=== PATIENT | male | born 1970 | race Caucasian/White ===

== ENCOUNTER 2019-06-11 09:32 | Emergency (ER) | payer SELFPAY ==
[~2019-06-11] VITALS: Ht 167.6 cm; Wt 72.6 kg
[2019-06-11] MEDS ORDERED: fentaNYL PF VIAL 100 MCG/2 ML VIAL IV ONE (09:45)
[2019-06-11] MEDS ORDERED: ONDANSETRON PF 4 MG/2 ML VIAL. IV ONE (09:45)
[2019-06-11] MEDS ORDERED: IV NORMAL SALINE 1000ML BAG 1,000 ML IV SCH (09:45)
[2019-06-11 09:59] LABS: BASO % 0 % (0-3); EOS # 0.3 x10^3/uL (0.0-0.7); EOS % 3 % (0-3); HEMATOCRIT 38.8 % (39.0-53.0); LYMPH # 1.8 x10^3/uL (1.0-4.8); LYMPH % 19 % (24-48); MEAN CORPUSCULAR HEMOGLOBIN 30 pg (25-35); MEAN CORPUSCULAR HGB CONC 34 g/dL (31-37); MEAN CORPUSCULAR VOLUME 90 fL (79-100); MONO # 0.7 x10^3/uL (0.0-1.1); MONO % 7 % (0-9); NEUT # 6.5 x10^3/uL (1.8-7.7); NEUT % 70 % (31-73); PLATELET COUNT 222 x10^3/uL (140-400); RED BLOOD COUNT 4.32 x10^6/uL (4.30-5.70); RED CELL DISTRIBUTION WIDTH 13.5 % (11.5-14.5); WHITE BLOOD COUNT 9.2 x10^3/uL (4.0-11.0)
[2019-06-11 10:13] LABS: CREATININE 1.3 mg/dL (0.7-1.3); GFR 58.9; POTASSIUM 3.3 mmol/L (3.5-5.1)
[2019-06-11 10:21] LABS: ALBUMIN 3.7 g/dL (3.4-5.0); TOTAL BILIRUBIN 0.2 mg/dL (0.2-1.0); TOTAL PROTEIN 7.4 g/dL (6.4-8.2)
--- NOTE | 2019-06-11 10:34 | RAD ---
CT ABDOMEN PELVIS WO CONTRAST History: Left upper quadrant pain. Technique: Noncontrast examination of the abdomen and pelvis. Coronal and sagittal reconstructions were performed. Exposure: One or more of the following individualized dose reduction techniques were utilized for this examination: 1. Automated exposure control 2. Adjustment of the mA and/or kV according to patient size 3. Use of iterative reconstruction technique. Comparison: None Findings: Lower chest: No consolidation or pleural effusion. Abdomen and pelvis: Left perinephric and periureteral fat stranding. Mild left hydronephrosis. 0.6 cm anterior posterior by 0.5 cm transverse by 0.7 cm craniocaudal obstructing left proximal ureteral calculus. No additional urolithiasis. No right hydronephrosis. Mild urinary bladder wall thickening, likely due to nondistention. Calcifications within the liver and spleen related to prior granulomatous disease. Otherwise, unremarkable noncontrast appearance of the liver, spleen, adrenal glands, pancreas and gallbladder. No biliary ductal dilatation. No evidence of bowel obstruction. Normal appendix. No pathologic lymphadenopathy. No ascites. Bones: No pathologic osseous lesions. Impression: 1. 6 mm obstructing left proximal ureteral stone with associated mild hydronephrosis and perinephric/periureteral fat stranding. 2. Mild urinary bladder wall thickening, likely due to nondistention. Correlate for cystitis. Electronically signed by: Juan M Bergman DO (06/11/2019 10:31 AM) [facility]
[2019-06-11] MEDS ORDERED: TAMSULOSIN 0.4 MG CAP.ER.24H. PO STA (10:42)
[2019-06-11] MEDS ORDERED: HYDROmorphone 2 MG/ML VIAL ONE (10:44)
[2019-06-11] MEDS ORDERED: TAMSULOSIN 0.4 MG CAP.ER.24H. PO ONE (10:44)
[2019-06-11] MEDS ORDERED: KETOROLAC 30 MG/ML VIAL. IV ONE (10:45)
[2019-06-11] MEDS ORDERED: HYDROmorphone 2 MG/ML VIAL IV ONE (11:00)
[2019-06-11] MEDS ORDERED: IV NORMAL SALINE 1000ML BAG 1,000 ML IV ONE (11:00)
[2019-06-11] MEDS ORDERED: HYDR-3164 PO (11:25)
[2019-06-11] MEDS ORDERED: TAMS0.4C97 PO (11:25)
[2019-06-11] MEDS ORDERED: IBUP-1060 PO (11:25)
--- NOTE | 2019-06-11 11:26 | PHYS DOC ---
Past Medical History Past Medical History: No Pertinent History Past Surgical History: No Surgical History Additional Information: 1 ppd Alcohol Use: Sober Additional Information: sober 12 years Drug Use: Methamphetamine Adult General Chief Complaint Chief Complaint: FLANK PAIN HPI HPI Patient is a 48 year old male who presents with complaining of left abdominal pain. Patient complaining of sudden onset of left upper quadrant pain as a sharp stabbing pain about an hour prior to arrival to ER with nausea without vomiting, diarrhea and constipation, fever and chills, urinary symptom with history of injury of the same pain. Patient rated his pain as a 10 over 10 and denies recent dehydration. Review of Systems Review of Systems Constitutional: Denies fever or chills [] Eyes: Denies change in visual acuity, redness, or eye pain [] HENT: Denies nasal congestion or sore throat [] Respiratory: Denies cough or shortness of breath [] Cardiovascular: No additional information not addressed in HPI [] GI: Reports abdominal pain, nausea, denies vomiting, bloody stools or diarrhea [] : Denies dysuria or hematuria [] Musculoskeletal: Denies back pain or joint pain [] Integument: Denies rash or skin lesions [] Neurologic: Denies headache, focal weakness or sensory changes [] Endocrine: Denies polyuria or polydipsia [] All other systems were reviewed and found to be within normal limits, except as documented in this note. Current Medications Current Medications Current Medications Medications (Trade) Dose Ordered Sig/Frances Start Time Stop Time Status Last Admin Dose Admin Fentanyl Citrate (Fentanyl 2ml Vial) 50 mcg 1X ONCE 06/11/19 09:45 06/11/19 10:04 DC 06/11/19 09:54 50 MCG Hydromorphone HCl (Dilaudid) 2 mg STK-MED ONCE 06/11/19 10:44 06/11/19 10:44 DC Ketorolac Tromethamine (Toradol 30mg Vial) 30 mg 1X ONCE 06/11/19 10:45 06/11/19 10:46 DC 06/11/19 10:32 30 MG Ondansetron HCl (Zofran) 4 mg 1X ONCE 06/11/19 09:45 06/11/19 10:04 DC 06/11/19 09:54 4 MG Sodium Chloride 1,000 ml @ 1,000 mls/hr 1X ONCE 06/11/19 11:00 8/20/19 11:59 DC 06/11/19 10:49 1,000 MLS/HR Tamsulosin HCl (Flomax) 0.4 mg STK-MED ONCE 06/11/19 10:44 06/11/19 10:44 DC Allergies Allergies Allergies Coded Allergies Type Severity Reaction Last Updated Verified procaine Allergy Severe "convulsions" 06/11/19 Yes Physical Exam Physical Exam Constitutional: Well developed, well nourished, moderate distress, non-toxic appearance. [] HENT: Normocephalic, atraumatic. Eyes: PERRLA, EOMI, conjunctiva normal, no discharge. [] Neck: Normal range of motion, no tenderness, supple, no stridor. [] Cardiovascular:Heart rate regular rhythm, no murmur [] Lungs & Thorax: Bilateral breath sounds clear to auscultation [] Abdomen: Bowel sounds normal, soft, left upper quadrant guarding, no tenderness, no masses, no pulsatile masses. [] Skin: Warm, dry, no erythema, no rash. [] Back: No tenderness, no CVA tenderness. [] Extremities: No tenderness, no cyanosis, no clubbing, ROM intact, no edema. [] Neurologic: Alert and oriented X 3, no focal deficits noted. [] Psychologic: Affect anxious, judgement normal, mood normal. [] Current Patient Data Vital Signs Vital Signs Date Time Temp Pulse Resp B/P (MAP) Pulse Ox O2 Delivery O2 Flow Rate FiO2 06/11/19 12:30 60 103/54 (70) 95 Room Air 06/11/19 10:49 18 06/11/19 09:38 97.5 97.5 Lab Values Laboratory Tests Test 06/11/19 09:42 06/11/19 12:10 White Blood Count 9.2 x10^3/uL (4.0-11.0) Red Blood Count 4.32 x10^6/uL (4.30-5.70) Hemoglobin 13.0 g/dL (13.0-17.5) Hematocrit 38.8 % (39.0-53.0) L Mean Corpuscular Volume 90 fL (79-100) Mean Corpuscular Hemoglobin 30 pg (25-35) Mean Corpuscular Hemoglobin Concent 34 g/dL (31-37) Red Cell Distribution Width 13.5 % (11.5-14.5) Platelet Count 222 x10^3/uL (140-400) Neutrophils (%) (Auto) 70 % (31-73) Lymphocytes (%) (Auto) 19 % (24-48) L Monocytes (%) (Auto) 7 % (0-9) Eosinophils (%) (Auto) 3 % (0-3) Basophils (%) (Auto) 0 % (0-3) Neutrophils # (Auto) 6.5 x10^3/uL (1.8-7.7) Lymphocytes # (Auto) 1.8 x10^3/uL (1.0-4.8) Monocytes # (Auto) 0.7 x10^3/uL (0.0-1.1) Eosinophils # (Auto) 0.3 x10^3/uL (0.0-0.7) Basophils # (Auto) 0.0 x10^3/uL (0.0-0.2) Sodium Level 144 mmol/L (136-145) Potassium Level 3.3 mmol/L (3.5-5.1) L Chloride Level 104 mmol/L (98-107) Carbon Dioxide Level 33 mmol/L (21-32) H Anion Gap 7 (6-14) Blood Urea Nitrogen 16 mg/dL (8-26) Creatinine 1.3 mg/dL (0.7-1.3) Estimated GFR (Cockcroft-Gault) 58.9 BUN/Creatinine Ratio 12 (6-20) Glucose Level 106 mg/dL (70-99) H Calcium Level 9.0 mg/dL (8.5-10.1) Total Bilirubin 0.2 mg/dL (0.2-1.0) Aspartate Amino Transferase (AST) 15 U/L (15-37) Alanine Aminotransferase (ALT) 18 U/L (16-63) Alkaline Phosphatase 64 U/L (46-116) Total Protein 7.4 g/dL (6.4-8.2) Albumin 3.7 g/dL (3.4-5.0) Albumin/Globulin Ratio 1.0 (1.0-1.7) Lipase 111 U/L (73-393) Urine Opiates Screen Pos (NEG) Urine Methadone Screen Neg (NEG) Urine Barbiturates Neg (NEG) Urine Phencyclidine Screen Neg (NEG) Urine Amphetamine/Methamphetamine Pos (NEG) Urine Benzodiazepines Screen Neg (NEG) Urine Cocaine Screen Neg (NEG) Urine Cannabinoids Screen Neg (NEG) Urine Ethyl Alcohol Neg (NEG) Laboratory Tests 06/11/19 09:42 Laboratory Tests 06/11/19 09:42 EKG EKG [] Radiology/Procedures Radiology/Procedures [][facility] [address] [place] [address] IMAGING REPORT Signed PATIENT: ENRIQUE MANTILLA ACCOUNT: [id number] : 1970 LOCATION: ER AGE: 48 SEX: M EXAM STATUS: REG ER ORD. PHYSICIAN: DINO LEONG MD REASON: left upper quadrant pain PROCEDURE: CT ABDOMEN PELVIS WO CONTRAST CT ABDOMEN PELVIS WO CONTRAST History: Left upper quadrant pain. Technique: Noncontrast examination of the abdomen and pelvis. Coronal and sagittal reconstructions were performed. Exposure: One or more of the following individualized dose reduction techniques were utilized for this examination: 1. Automated exposure control 2. Adjustment of the mA and/or kV according to patient size 3. Use of iterative reconstruction technique. Comparison: None Findings: Lower chest: No consolidation or pleural effusion. Abdomen and pelvis: Left perinephric and periureteral fat stranding. Mild left hydronephrosis. 0.6 cm anterior posterior by 0.5 cm transverse by 0.7 cm craniocaudal obstructing left proximal ureteral calculus. No additional urolithiasis. No right hydronephrosis. Mild urinary bladder wall thickening, likely due to nondistention. Calcifications within the liver and spleen related to prior granulomatous disease. Otherwise, unremarkable noncontrast appearance of the liver, spleen, adrenal glands, pancreas and gallbladder. No biliary ductal dilatation. No evidence of bowel obstruction. Normal appendix. No pathologic lymphadenopathy. No ascites. Bones: No pathologic osseous lesions. Impression: 1. 6 mm obstructing left proximal ureteral stone with associated mild hydronephrosis and perinephric/periureteral fat stranding. 2. Mild urinary bladder wall thickening, likely due to nondistention. Correlate for cystitis. Electronically signed by: Juan M Bergman DO (06/11/2019 10:31 AM) [facility] DICTATED and SIGNED BY: JUAN M BERGMAN DO DATE: 06/11/19 1031 Course & Med Decision Making Course & Med Decision Making Pertinent Labs and Imaging studies reviewed. (See chart for details) Evaluation of patient in ER showed 48-year-old male patient with complaining of sudden onset of abdomen and left flank pain about an over prior to arrival with severe pain. Patient was contacted with IV fluids, fentanyl, Zofran, Toradol and Dilaudid and finally felt better. CT of abdomen showed 6 mm upper ureteral stone. Patient treated with 2 L of IV fluid and refused to give urine sample and finally gave a sample of urine that was normal. UDS and showed positive amphetamines. Patient did not have UA and because of the cloudy urine sample and oral antibiotic was started and patient was advised to strain his urine and follow up with on-call urologist. Dragon Disclaimer Dragon Disclaimer This electronic medical record was generated, in whole or in part, using a voice recognition dictation system. Departure Departure Impression: Primary Impression: Renal colic on left side Additional Impressions: Ureterolithiasis Methamphetamine abuse Disposition: 01 HOME, SELF-CARE Condition: IMPROVED Referrals: NO PCP (PCP) HOLLY MACIAS MD Patient Instructions: Diet for Kidney Stones, Kidney Stones Additional Instructions: Drink plenty of liquids Follow-up with your primary care physician in 3-5 days Return to ER if not getting better Strain all of your urine Follow up with on-call urologist in 2 or 3 days Scripts Ciprofloxacin Hcl (CIPRO) 250 Mg Tablet 1 TAB PO BID for infection, #6 TAB Prov: DINO LEONG MD 06/11/19 Hydrocodone/Apap 5-325 (NORCO 5-325 TABLET) 1 Each Tablet 1 TAB PO PRN Q6HRS PRN for PAIN, #14 TAB 0 Refills Prov: DINO LEONG MD 06/11/19 Ibuprofen (IBUPROFEN) 800 Mg Tablet 800 MG PO PRN Q8HRS PRN for INFLAMMATION, #20 TAB Prov: DINO LEONG MD 06/11/19 Tamsulosin Hcl (FLOMAX) 0.4 Mg Cap.er.24h 1 CAP PO DAILY, #14 CAP 0 Refills Prov: DINO LEONG MD 06/11/19 Critical Care Time Critical care time was 70 minutes exclusive of procedures. Problem Qualifiers DINO LEONG MD Jun 11, 2019 11:25
[2019-06-11] MEDS ORDERED: CIPR250T30 PO (12:24)
[2019-06-11 12:29] LABS: BARBITURATES NEG (NEG); BENZODIAZEPINES NEG (NEG); CANNABINOIDS NEG (NEG); COCAINE NEG (NEG); METHADONE NEG (NEG); OPIATES POS (NEG); PHENCYCLIDINE NEG (NEG)
[2019-06-11 12:30] VITALS: BP 103/54
[2019-06-11 12:30] LABS: AMPHETAMINE/METHAMPHETAMINE POS (NEG)
== END 2019-06-11 12:40 | disposition home or self-care (01) ==
LOC: ER 09:32
DX: N13.2 Hydronephrosis with renal and ureteral calculous obstruction (principal); R19.7 Diarrhea, unspecified; N23 Unspecified renal colic; F15.10 Other stimulant abuse, uncomplicated; F17.200 Nicotine dependence, unspecified, uncomplicated; Z88.4 Allergy status to anesthetic agent
CPT/HCPCS: 36415; 74176; 80053; 80307; 83690; 85025; 96361; 96374; 96375; 99285; J1170; J1885; J2405; J3010; J7030

== ENCOUNTER 2020-12-12 09:12 | Emergency (ER) | payer SELFPAY ==
[~2020-12-12] VITALS: Ht 177.8 cm; Wt 86.3 kg
[~2020-12-12 09:12] MED LIST: CIPR250T30 PO; HYDR-3164 PO; IBUP-1060 PO; TAMS0.4C97 PO
[2020-12-12] MEDS ORDERED: FLUORESCEIN OPHTH TEST STRIP. ONE (09:28)
[2020-12-12] MEDS ORDERED: TETRACAINE 0.5% OPHTH SOLUTION 4ML BOTTLE. ONE (09:28)
[2020-12-12 09:31] VITALS: BP 154/85
[2020-12-12] MEDS ORDERED: KETOROLAC TROMETHAMINE 0.5% OPHTH SOLUTION 5ML BOTTLE. OU ONE (09:45)
[2020-12-12] MEDS ORDERED: FLUORESCEIN OPHTH TEST STRIP. OU ONE (09:45)
[2020-12-12] MEDS ORDERED: ERYT1OIN6 OP (10:21)
[2020-12-12] MEDS ORDERED: HYDR-2759 PO (10:21)
[2020-12-12] MEDS ORDERED: IBUP-1060 PO (10:21)
--- NOTE | 2020-12-12 10:21 | ED.ADGEN ---
Past Medical History Past Medical History: No Pertinent History Past Surgical History: No Surgical History, Other Additional Past Surgical Histo: PIN IN THUMB Smoking Status: Current Every Day Smoker Alcohol Use: Sober Drug Use: Methamphetamine General Adult EDM: Chief Complaint: EYE PROBLEMS HPI: HPI: Patient is a 50 year old male coming in for bilateral eye pain and tearing. 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 Denies any foreign body sensation. Has not take anything for pain prior to arrival. Patient states he otherwise has been well and does not use contacts or glasses. Last tetanus greater than 5 years ago. Review of Systems: Review of Systems: All other systems within normal limits except for as noted in the HPI Current Medications: Current Medications Medications (Trade) Dose Ordered Sig/Frances Start Time Stop Time Status Last Admin Dose Admin Fluorescein Sodium (Ful-Hoa) 1 strip 1X ONCE 12/12/20 09:45 12/12/20 09:46 DC 12/12/20 09:50 1 STRIP Ketorolac Tromethamine (Acular) 1 drop 1X ONCE 12/12/20 09:45 12/12/20 09:46 DC 12/12/20 09:50 1 DROP Tetracaine HCl (Tetracaine) 40 drop STK-MED ONCE 12/12/20 09:28 12/12/20 09:29 DC Allergies: Allergies: Allergies Coded Allergies Type Severity Reaction Last Updated Verified procaine Allergy Severe "convulsions" 06/11/19 Yes Physical Exam: PE: Constitutional: Well developed, well nourished, no acute distress, non-toxic appearance. [] HENT: Normocephalic, atraumatic, bilateral external ears normal, nose normal. [] Eyes: PERRLA, conjunctiva normal, no discharge. Extraocular movements intact, you have modification and fluorescein, scattered punctate keratosis, no Jovanny sign, abrasions nor ulcerations. [] Neck: No rigidity, supple, no stridor. [] Cardiovascular: Regular rate and rhythm, brisk cap refill [] Lungs & Thorax: Non labored symmetric respirations, no tachypnea or respiratory distress [] Abdomen: Soft, nondistended. Skin: Warm, dry, no erythema, no rash. [] Back: Unremarkable Extremities: No deformities, range of motion grossly intact, no lower extremity edema [] Neurologic: Alert and oriented X 3, no focal deficits noted. [] Psychologic: Affect normal, judgement normal, mood normal. [] Current Patient Data: Vital Signs: Vital Signs Date Time Temp Pulse Resp B/P (MAP) Pulse Ox O2 Delivery O2 Flow Rate FiO2 12/12/20 09:31 98.2 94 18 154/85 (108) 95 Room Air 98.2 EKG: EKG: [] Heart Score: Risk Factors: Risk Factors: DM, Current or recent (<one month) smoker, HTN, HLP, family history of CAD, obesity. Risk Scores: Score 0 - 3: 2.5% MACE over next 6 weeks - Discharge Home Score 4 - 6: 20.3% MACE over next 6 weeks - Admit for Clinical Observation Score 7 - 10: 72.7% MACE over next 6 weeks - Early Invasive Strategies Radiology/Procedures: Radiology/Procedures: [] Course & Med Decision Making: Course & Med Decision Making Sent home with ketorolac drops. Discussed return precautions and orthopedic follow-up. Patient declined tetanus update today Figueroa Disclaimer: Figueroa Disclaimer: This electronic medical record was generated, in whole or in part, using a voice recognition dictation system. Departure Departure Impression: Primary Impression: Ultraviolet keratitis of both eyes Disposition: 01 DC HOME SELF CARE/HOMELESS Condition: STABLE Referrals: NO PCP (PCP) [facility] Patient Instructions: Eye - Ultraviolet Keratitis Scripts Ibuprofen (IBUPROFEN) 800 Mg Tablet 800 MG PO PRN Q8HRS PRN for INFLAMMATION, #20 TAB Prov: MARISSA ARAUJO MD 12/12/20 Hydrocodone/Acetaminophen (Hydrocodone-Acetamin 5-325 mg) 1 Each Tablet 1 EACH PO PRN Q6-8HRS PRN for PAIN for 3 Days, #10 TAB Prov: MARISSA ARAUJO MD 12/12/20 Erythromycin Base (Erythromycin) 1 Gm Oint...g. 1 GM OP Q6HRS for antibiotic for 5 Days, MISC Prov: MARISSA ARAUJO MD 12/12/20 MARISSA ARAUJO MD Dec 12, 2020 10:21
[2020-12-12] MEDS ORDERED: HYDROcodone/APAP 5/325MG 1 TAB TABLET PO ONE (10:30)
== END 2020-12-12 10:35 | disposition home or self-care (01) ==
LOC: ER 09:12
DX: H16.8 Other keratitis (principal); F17.200 Nicotine dependence, unspecified, uncomplicated; Z88.4 Allergy status to anesthetic agent
CPT/HCPCS: 99284